=== PATIENT | female | born 1970 ===

== ENCOUNTER 2018-05-02 05:50 | Day surgery (SDC) | payer OTHER ==
[~2018-05-02 05:50] MED LIST: PROTONIX40 MG PO
[2018-05-02] MEDS ORDERED: CIPRO500 MG PO (09:57)
[2018-05-02] MEDS ORDERED: POLY119PG PO (09:58)
[2018-05-02] MEDS ORDERED: SURFAK240 M1 PO (09:58)
[2018-05-02] MEDS ORDERED: PERCOCET 5-3251 EACH PO (09:59)
== END 2018-05-02 12:50 | disposition home or self-care (01) ==
LOC: CIR.AMB 05:50
DX: K80.10 Calculus of gallbladder with chronic cholecystitis without obstruction (principal); K42.9 Umbilical hernia without obstruction or gangrene